=== PATIENT | male | born 1955 | race Caucasian/White ===

== ENCOUNTER 2017-04-26 15:00 | Emergency (ER) | payer MEDICARE, OTHER | END 2017-04-26 16:51 | disposition home or self-care (01) | LOC: ER 15:00 | DX: R07.81 Pleurodynia (principal); R51 Headache; G31.9 Degenerative disease of nervous system, unspecified; E66.01 Morbid (severe) obesity due to excess calories; F17.220 Nicotine dependence, chewing tobacco, uncomplicated; Z79.899 Other long term (current) drug therapy | CPT/HCPCS: 70450; 71250; 96372; 99283-25; 99284 ==